=== PATIENT | female | born 1940 ===

== ENCOUNTER 2016-10-07 08:49 | Day surgery (SDC) | payer MEDICARE, MEDICAID ==
[2016-10-07] MEDS ORDERED: Iohexol 240 (50 ml) ONE (10:55)
[2016-10-07] MEDS ORDERED: Lidocaine 2% Jelly (Uro-Jet) ONE (10:55)
[2016-10-07] MEDS ORDERED: cefTRIAXone (Rocephin) 1 gm Inj ONE (11:59)
[2016-10-07] MEDS ORDERED: Propofol 10 mg/ml Inj (20 ML) ONE (12:17)
[2016-10-07] MEDS ORDERED: Linezolid 600 mg in D5W 300 ml 600 MG/300 ML BAG IVPB STA (12:57)
[2016-10-07] MEDS ORDERED: Lactated Ringer's 1,000 ML IV SCH (13:15)
[2016-10-07 14:00] VITALS: PULSE 66
[2016-10-07 14:30] VITALS: RESP 18; TEMP 97.5; O2SAT 98
[2016-10-07 14:34] VITALS: BMI 27.8
--- NOTE | 2016-10-07 15:20 | RAD ---
PROCEDURE: Retrograde pyelogram HISTORY: LT URITER STRICTURE, NEPHROURETERAL STENT EXCHANGE COMPARISON: TECHNIQUE: Fluoroscopy was provided in the operating room. 2 minutes and 8 seconds of fluoro time. Fourteen images submitted FINDINGS: The study shows a left retrograde pyelogram with placement of a left ureteral stent. There is some extravasation of contrast around the distal ureter IMPRESSION: As above
[2016-10-07 15:42] VITALS: BP 141/60
== END 2016-10-07 16:00 | disposition home or self-care (01) ==
LOC: SDS 08:49
PROVIDERS: ATTEND Urology
DX: N13.1 Hydronephrosis with ureteral stricture, not elsewhere classified (principal)
CPT/HCPCS: 52332; 74420; C1758 ×2; C1769 ×2; C2625; J2020; J2704; J3010; J7120 ×2; Q9966

== ENCOUNTER 2017-07-07 08:38 | Day surgery (SDC) | payer MEDICARE, MEDICAID ==
[2017-06-27 11:35] VITALS: BMI 28.0
[2017-07-07] MEDS ORDERED: Vancomycin 1gm in NS 250ml 1 GM/250 ML BAG IVPB STA (08:54)
[2017-07-07] MEDS ORDERED: Vancomycin 1gm in NS 250ml IVPB ONE (09:38)
[2017-07-07] MEDS ORDERED: Iohexol 240 (50 ml) ONE (09:58)
[2017-07-07] MEDS ORDERED: Midazolam 2 MG/2 ML VIAL ONE (10:40)
[2017-07-07] MEDS ORDERED: Lidocaine 1% Inj (20ml) ONE (10:41)
[2017-07-07] MEDS ORDERED: Propofol 10 mg/ml Inj (20 ML) ONE (10:41)
[2017-07-07] MEDS ORDERED: Sevoflurane - Inhalation Anesthetic Liq (250 ml) ONE (10:55)
[2017-07-07] MEDS ORDERED: Nitroglycerin 2% Ointment Foilpak UD TOP ONE (11:10)
[2017-07-07] MEDS ORDERED: HYDROmorphone 0.5 mg/0.5 ml ISec IVP PRN ×2 (11:20→11:23)
[2017-07-07 11:27] VITALS: TEMP 97.4
[2017-07-07 12:20] VITALS: BP 142/64; PULSE 54; RESP 18; O2SAT 100
--- NOTE | 2017-07-07 12:52 | RAD ---
PROCEDURE: Fluoroscopy up to 1 hour HISTORY: RETROGRADE PYELO. / STENT REMOVAL / STENT INSERTION / (LEFT ) COMPARISON: TECHNIQUE: Fluoroscopy was provided in the operating room. 44.9 seconds of fluoro time. Cumulative dose 7.48 mGy. Twelve images were submitted FINDINGS: Study shows placement of a left ureteral stent IMPRESSION: As above
--- NOTE | 2017-07-07 15:45 | OP ---
PROCEDURE DATE: 07/07/2017 PREOPERATIVE DIAGNOSIS: Left ureteral stricture, indwelling left ureteral stent. POSTOPERATIVE DIAGNOSIS Left ureteral stricture, indwelling left ureteral stent. PROCEDURES 1. Cystoscopy. 2. Removal of left ureteral stent. 3. Left retrograde pyelogram. 4. Insertion of left ureteral stent. ATTENDING SURGEON: Dr. Michael Miles. ANESTHESIA: General. SPECIMENS None. DRAINS: A 6 x 24 left ureteral stent. COMPLICATIONS: None. OPERATIVE FINDINGS: After informed consent was obtained, the patient was taken to operating room, placed on operating table and anesthesia was administered. The patient had received intravenous vancomycin 1 hour prior to start of the procedure. The patient was placed in the operating table. She was prepped and draped in usual sterile fashion. A 22-[place] cystoscope was then advanced into the patient's bladder under direct vision. A full survey inspection of bladder was then performed, which revealed no stones or papillary tumors. There was a stent noted exiting from the left ureteral orifice. Right ureteral orifice appeared within normal limits. At this point, the stent was grasped and withdrawn through the urethral meatus. On fluoroscopy, the upper limb was noted to uncoil without difficulty. A sensor wire was then obtained. It was passed through the scope and attempts were made to pass the wire up the ureter next to the stent. The wire kept getting resistance and at this point, the stent was then withdrawn through the urethral meatus under direct vision in the bladder. The stent was removed easily in its entirety. The guidewire was then inserted into the ureteral orifice and was able to be advanced up the ureter under fluoroscopic guidance until it coiled in the upper collecting system without difficulty. At this point, an open-ended ureteral catheter was advanced through the cystoscope over the guidewire and into the left ureter. When the open-ended catheter was in the ureter, the guidewire was removed. Contrast was then instilled into the system. The ureter appeared to be of normal caliber. There did appear to be a narrowed area in the distal ureter just by the pelvic brim. Contrast was able to be easily instilled past this. There was no hydronephrosis or hydroureter above this area. At this point, the sensor wire was repassed under fluoroscopic guidance until it coiled in the upper collecting system. The open-ended ureteral catheter was then removed and a new 6 x 26 stent was obtained was passed over the wire through the cystoscope and into the left ureter. The stent was advanced proximally under direct and fluoroscopic guidance until it was in at the appropriate position. When the stent was in place, the guidewire was removed. A coil was seen in the renal pelvis on fluoroscopy. A coil was seen in bladder on cystoscopy. At this point, the procedure was complete, the bladder was drained. The urine was sent for urine culture and the cystoscope was removed. The patient tolerated procedure well. She was returned to the supine position and taken to the recovery room, awake in stable condition. Bertha Miles MD
== END 2017-07-07 13:00 | disposition home or self-care (01) ==
LOC: SDS 08:38
PROVIDERS: ATTEND Urology
DX: N13.5 Crossing vessel and stricture of ureter without hydronephrosis (principal)
CPT/HCPCS: 52332; 76000; 87086; C1758; C1769; C2625; J1170; J2250; J2405; J2704; J2765; J3010; J7120; Q9966

== ENCOUNTER 2018-06-17 07:55 | Outpatient (CLI) | payer MEDICARE, MEDICAID | END 2018-06-17 07:56 | disposition home or self-care (01) | LOC: PAT 07:55 ==

== ENCOUNTER 2018-06-25 06:41 | Day surgery (SDC) | payer MEDICARE, MEDICAID ==
[2018-06-25 08:20] VITALS: RESP 20
[2018-06-25] MEDS ORDERED: Lidocaine 2% Inj (20ml) ONE ×2 (09:21→09:23)
[2018-06-25] MEDS ORDERED: Gentamicin 80 mg in 0.9% NS 80 MG/100 ML BAG IVPB ONE (09:21)
[2018-06-25] MEDS ORDERED: cefTRIAXone (Rocephin) 1 gm Inj ONE (09:21)
[2018-06-25] MEDS ORDERED: Iohexol 240 (50 ml) ONE (09:22)
[2018-06-25] MEDS ORDERED: Lidocaine 2% Jelly (Uro-Jet) ONE (09:33)
[2018-06-25] MEDS ORDERED: Propofol 10 mg/ml Inj (20 ML) ONE (09:35)
[2018-06-25] MEDS ORDERED: Lactated Ringer's 1,000 ML IV SCH (10:00)
--- NOTE | 2018-06-25 10:48 | RAD ---
Date of service: 06/25/2018 PROCEDURE: Retrograde pyelogram HISTORY: STENT CHANGE COMPARISON: TECHNIQUE: 17.1 sec of fluoro time. Cumulative dose 4.55 mGy. 13 images were submitted. FINDINGS: The study shows replacement of a left ureteral stent. The stent appears to be in good position IMPRESSION: As above
[2018-06-25 11:04] VITALS: BP 114/64; PULSE 55; TEMP 97.3; BMI 27.8
[2018-06-25 11:08] VITALS: O2SAT 96
--- NOTE | 2018-06-25 14:22 | OP ---
PROCEDURE DATE: 06/25/2018 PREOPERATIVE DIAGNOSIS: Left ureteral stricture. POSTOPERATIVE DIAGNOSIS: Left ureteral stricture. PROCEDURES: Cystoscopy, removal of left stent, left retrograde pyelogram, insertion of left stent. ATTENDING SURGEON: Michael Miles MD ANESTHESIA: General. SPECIMENS: There were none. DRAINS: 6 x 24 left ureteral stent. COMPLICATIONS: There were none. OPERATIVE FINDINGS: After informed consent was obtained, the patient was taken to operating room, placed on operating table. Anesthesia was administered. The patient was then placed in dorsal lithotomy position and prepped, draped in the usual sterile fashion. The patient received IV antibiotics prior to start of the procedure. A 22-[place] cystoscope was then passed into the patient's bladder and a full survey inspection was performed. There were no stones or papillary tumors noted. The bladder was somewhat inflamed in appearance. There was a stent noted exiting from the left ureteral orifice. The right ureteral orifice appeared within normal limits. At this point, a grasping forceps was passed, the end of the stent was grasped and withdrawn through the urethral meatus. The cystoscope was then re-passed and the stent was grasped at the meatus and removed without difficulty. The stent was removed from the operative field. The ureteral orifice was easily visualized, there was some mild bullous edema around it, but the orifice appeared widely dilated. At this point, a 5-[place] Hildebran catheter was introduced through the scope and guided into the left ureteral orifice. When inside the orifice, retrograde pyelogram was then performed by instilling contrast through the catheter during real-time fluoroscopy. The distal ureter appeared of normal caliber in the mid ureter by the pelvic brim, there appeared to be some narrowed areas. The ureter above this was not dilated though. There was some fullness of the calyces of the kidney but there were no apparent filling defects. There was no hydronephrosis. At this point, a sensor wire was obtained. It was passed through the Hildebran catheter and guided up into the kidney under direct vision and fluoroscopic guidance. When the wire was then placed, the Hildebran catheter was removed. A 6 x 24 stent was obtained. It was passed over the wire through the cystoscope and into the left ureter. The stent was then advanced proximally under direct and fluoroscopic guidance until it was in at the appropriate depth. When the stent was in proper position, the guidewire was removed. A coil was seen in the collecting system on fluoroscopy. A coil was seen in the bladder on cystoscopy. At this point, the procedure was completed, the bladder was then drained and the cystoscope was removed. The patient tolerated the procedure well and she was taken to the recovery room awake in stable condition. Michael Miles MD
== END 2018-06-25 12:00 | disposition home or self-care (01) ==
LOC: SDS 06:41
PROVIDERS: ATTEND Urology
DX: N13.5 Crossing vessel and stricture of ureter without hydronephrosis (principal)